=== PATIENT | female | born 1960 | race Caucasian/White ===

== ENCOUNTER → 2017-02-15 | Outpatient (CLI) | payer OTHER | LOC: RAD 12:51 | DX: Z12.31 Encounter for screening mammogram for malignant neoplasm of breast (principal) ==

== ENCOUNTER → 2017-02-18 | Outpatient (CLI) | payer OTHER | LOC: RAD 00:30 | DX: R92.8 Other abnormal and inconclusive findings on diagnostic imaging of breast (principal) ==

== ENCOUNTER → 2017-02-22 | Outpatient (CLI) | payer OTHER | LOC: ULTRA 14:31 | DX: R92.8 Other abnormal and inconclusive findings on diagnostic imaging of breast (principal) ==

== ENCOUNTER 2017-03-27 11:29 | Emergency (ER) | payer OTHER ==
[~2017-03-27] VITALS: Ht 160 cm; Wt 83.9 kg
[2017-03-27] MEDS ORDERED: HYDROCODONE-AP1 EAC6 PO (13:33)
== END 2017-03-27 15:54 | disposition home or self-care (01) ==
LOC: ER 11:29
DX: S52.501A Unspecified fracture of the lower end of right radius, initial encounter for closed fracture (principal); W19.XXXA Unspecified fall, initial encounter; Y93.89 Activity, other specified; Y92.89 Other specified places as the place of occurrence of the external cause; Y99.8 Other external cause status

== ENCOUNTER → 2018-02-28 | Outpatient (CLI) | payer OTHER ==
[~2018-02-28] MED LIST: HYDROCODONE-AP1 EAC6 PO
== END ==
LOC: RAD 12:16
DX: Z12.31 Encounter for screening mammogram for malignant neoplasm of breast (principal)

== ENCOUNTER → 2019-02-28 | Outpatient (CLI) | payer OTHER | LOC: BC 07:53 → RAD 11:05 | DX: Z12.31 Encounter for screening mammogram for malignant neoplasm of breast (principal) ==

== ENCOUNTER → 2020-01-21 | Outpatient (CLI) | payer OTHER | LOC: ULTRA 07:56 | DX: K76.0 Fatty (change of) liver, not elsewhere classified (principal); R74.8 Abnormal levels of other serum enzymes ==

== ENCOUNTER → 2020-03-05 | Outpatient (CLI) | payer OTHER | LOC: RAD 08:01 | DX: Z12.31 Encounter for screening mammogram for malignant neoplasm of breast (principal) ==